=== PATIENT | female | born 1965 | race Caucasian/White ===

== ENCOUNTER → 2016-08-26 | Outpatient (CLI) | payer BC ==
[~2016-08-26] MED LIST: CHOL100010 PO; RANITAB33 PO
[2016-08-26 11:19] LABS: BASO % 0.1 %; BASO ABS # 0.01 K/uL (0-0.2); COMPLETE YES; EOS % 0.4 %; IG% 0.3 %; LYMPH % 15.3 %; MEAN CELL VOLUME 91.1 fL (80-100); MEAN CORPUSCULAR HEMOGLOBIN 32.1 pg (25-34); MEAN CORPUSCULAR HGB CONC 35.3 g/dl (32-36); MEAN PLATELET VOLUME 9.3 fL (7.4-10.4); MONO % 6.9 %; PLATELET COUNT 212 K/uL (130-400); RED BLOOD COUNT 4.17 M/uL (4.2-5.4); WHITE BLOOD COUNT 7.82 K/uL (4.8-10.8)
[2016-08-26 11:36] LABS: PROTHROMBIN TIME (PATIENT) 10.9 SECONDS (9.0-12.0)
[2016-08-26 14:48] LABS: URINE APPEARANCE CLEAR (CLEAR); URINE BILIRUBIN NEG (NEG); URINE COLOR YELLOW; URINE EPITHELIAL CELL AUTO >30 /lpf (0-5); URINE NITRITE NEG (NEG); URINE PH 5.5 (4.5-7.5); UROBILINOGEN NEG (NEG)
[2016-08-26 14:57] LABS: MANUAL MICROSCOPIC REQUIRED? NO; REVIEW REQ? NO
[2016-08-29 13:25] LABS: CHLAMYDIA TRACH RNA*** NOT DETECTED (NOT DETECTED); GC (NEIS GONORRHOEAE)RNA** NOT DETECTED (NOT DETECTED)
== END | disposition home or self-care (01) ==
LOC: C.LAB1850 10:43
PROVIDERS: ATTEND Obstetrics & Gynecology
DX: R10.2 Pelvic and perineal pain (principal); N92.6 Irregular menstruation, unspecified

== ENCOUNTER → 2017-02-18 | Outpatient (CLI) | payer BC ==
--- NOTE | 2017-02-19 14:34 | MAMMOGRAPHY REPORT ---
BILATERAL DIGITAL SCREENING MAMMOGRAM TOMOSYNTHESIS WITH CAD: 02/18/2017 CLINICAL HISTORY: Routine screening. TECHNIQUE: Breast tomosynthesis in addition to standard 2D mammography was performed. Current study was also evaluated with a Computer Aided Detection (CAD) system. COMPARISON: Comparison is made to exams dated: 12/14/2013 mammogram, 12/27/2014 mammogram, 12/08/2012 ma mmogram, 11/20/2011 mammogram, 11/20/2010 mammogram, and 11/13/2010 mammogram - [facility] nter. BREAST COMPOSITION: The tissue of both breasts is heterogeneously dense, which may obscure small mas ses. FINDINGS: There is an area of questionable architectural distortion within the left medial breast se en on the cc tomosynthesis images only (slice 26/51), not clearly evident on the MLO view. Recommend spot compression tomosynthesis views and possible breast ultrasound for further evaluation. The remainder of both breasts demonstrate no suspicious masses, calcifications, or areas of mobility architect ural distortion. A linear scar marker denotes a scar on the left upper outer breast; minimal archite ctural distortion seen within the left lateral breast on the cc view is in the region of the scar mar ker and likely represents postsurgical changes. Bilateral benign-appearing calcifications are not si gnificantly changed. IMPRESSION: ACR BI-RADS CATEGORY 0: INCOMPLETE EVALUATION: NEED ADDITIONAL IMAGING EVALUATION Possible left breast architectural distortion, for which additional imaging evaluation is recommended . The patient will be called to schedule an appointment. Approximately 10% of breast cancers are not detected with mammography. A negative mammographic report should not delay biopsy if a clinically suggestive mass is present. Alexandra Avitia M.D. ah/:02/18/2017 16:58:44 Reimbursement Counselor: Az BROWN(R)(M), [facility] letter sent: Addl Imaging 0 BI-RADS Code: ACR BI-RADS Category 0: Incomplete Evaluation: Need Additional Imaging Evaluation
== END | disposition home or self-care (01) ==
LOC: C.MAMM 16:28
PROVIDERS: ATTEND Nurse Practitioner Family
DX: Z12.31 Encounter for screening mammogram for malignant neoplasm of breast (principal); R92.8 Other abnormal and inconclusive findings on diagnostic imaging of breast

== ENCOUNTER → 2017-03-03 | Outpatient (CLI) | payer BC ==
--- NOTE | 2017-03-03 13:54 | MAMMOGRAPHY REPORT ---
UNILATERAL LEFT DIGITAL DIAGNOSTIC MAMMOGRAM TOMOSYNTHESIS AND TARGETED LEFT ULTRASOUND: 03/03/2017 CLINICAL HISTORY: 51 year-old woman called back from screening mammography for possible architectural distortion in the medial left breast. History of prior left breast surgery in the upper outer quadr ant. TECHNIQUE: Spot compression left CC and MLO tomosynthesis images were obtained. COMPARISON: Comparison is made to exams dated: 02/18/2017 mammogram, 12/27/2014 mammogram, 02/13/2016 ma mmogram, 12/14/2013 mammogram, 12/08/2012 mammogram, and 11/20/2011 mammogram - [facility] nter. BREAST COMPOSITION: The tissue of the left breast is heterogeneously dense, which may obscure small masses. FINDINGS: There is effacement of the questionable architectural distortion in the medial left breast on both the spot compression CC and MLO tomosynthesis images. There is persistence of a lobulated 11 x 8 mm circumscribed mass in the medial left breast on the spot compression CC view (tomosynthesis s lice 18), for which further evaluation with ultrasound was performed. There are a few benign-appeari ng round and punctate microcalcifications scattered and loose groupings. Targeted ultrasound was performed throughout the medial left breast. Numerous anechoic cysts are katie ntified. The largest cyst in the 8:00 left breast, 2 cm from the nipple, measures 9.2 x 7.1 x 7.5 mm , and is thought to correlate with the lobulated mammographic mass seen on the spot compression CC vi ew. No suspicious solid mass is identified. IMPRESSION: ACR-BI-RADS CATEGORY 3: PROBABLY BENIGN, TARGETED ULTRASOUND ACR-BI-RADS CATEGORY 3: PRO BABLY BENIGN 1. There is effacement of the questionable architectural distortion in the medial left breast, which most likely represented overlapping fibrolinear markings. No suspicious sonographic correlate was s een. However, a short interval follow-up diagnostic left mammogram including tomosynthesis images an d possible repeat ultrasound is recommended to ensure stability in 6 months. 2. There is a lobulated and circumscribed 11 x 8 mm mass in the medial left breast near the area of questionable distortion which persists on the spot compression CC view and corresponds to a benign an echoic simple cyst on ultrasound, seen and 8:00 axis. Several other cysts are scattered throughout t he visualized medial left breast, compatible with fibrocystic changes. These results and recommendations were discussed with the patient at the time of the exam. She mitchell dawn scheduled a follow-up appointment prior to leaving our department. Approximately 10% of breast cancers are not detected with mammography. A negative mammographic report should not delay biopsy if a clinically suggestive mass is present. Seda Marie M.D. ay/:03/03/2017 12:24:44 Proof Coin Collector: Mayra COHEN)(Florentino), [facility] letter sent: Follow Up Recommended 3 BI-RADS Code: ACR-BI-RADS Category 3: Probably Benign Ultrasound BI-RADS: ACR-BI-RADS Category 3: Pr obably Benign
== END ==
LOC: C.MAMM 09:21
PROVIDERS: ATTEND Nurse Practitioner Family
DX: R92.2 Inconclusive mammogram (principal); N63 Unspecified lump in breast

== ENCOUNTER → 2017-09-03 | Outpatient (CLI) | payer OTHER ==
--- NOTE | 2017-09-03 14:38 | MAMMOGRAPHY REPORT ---
UNILATERAL LEFT DIGITAL DIAGNOSTIC MAMMOGRAM TOMOSYNTHESIS WITH CAD: 09/03/2017 CLINICAL HISTORY: Short interval follow-up of the left breast for questionable architectural distorti on which effaced on the additional images. TECHNIQUE: Breast tomosynthesis in addition to standard 2D mammography was performed. Current study was also evaluated with a Computer Aided Detection (CAD) system. Left CC and MLO 2-D and tomosynthes is images were obtained. COMPARISON: Comparison is made to exams dated: 03/03/2017 ultrasound, 03/03/2017 mammogram, 02/18/2017 mammogram, 02/13/2016 mammogram, 12/27/2014 mammogram, and 12/14/2013 mammogram - [facility] enter. BREAST COMPOSITION: The tissue of the left breast is heterogeneously dense, which may obscure small masses. FINDINGS: The previously described questionable architectural distortion within the left medial breas t on the cc view is not evident on the current exam. An asymmetry is seen in this region which appea rs similar to multiple prior exams including the 2012 exam. Given the long-term stability and absenc e of architectural distortion, the finding is benign and compatible with normal fibroglandular tissue . The remainder of the left breast is stable compared to prior exams, without suspicious masses, valorie cifications, or areas of architectural distortion noted. Scattered bilateral benign-appearing calcif ications are not significantly changed. A linear scar marker denotes a scar on the left upper outer breast. IMPRESSION: ACR BI-RADS CATEGORY 2: BENIGN There is no mammographic evidence of malignancy in the left breast. Return to annual mammogram screen ing schedule is recommended, due January 2018. The patient has been verbally notified of the results. Approximately 10% of breast cancers are not detected with mammography. A negative mammographic report should not delay biopsy if a clinically suggestive mass is present. Alexandra Avitia M.D. /:09/03/2017 09:23:05 Clinical Review Specialist: Milvia Sánchez, [facility] letter sent: Normal 1/2 BI-RADS Code: ACR BI-RADS Category 2: Benign
== END | disposition home or self-care (01) ==
LOC: C.MAMM 09:05
PROVIDERS: ATTEND Nurse Practitioner Family
DX: N64.89 Other specified disorders of breast (principal)

== ENCOUNTER → 2018-03-22 | Outpatient (CLI) | payer OTHER ==
[2018-03-22 10:22] LABS: BASO % 0.3 %; BASO ABS # 0.02 K/uL (0-0.2); EOS % 0.7 %; EOS ABS # 0.05 K/uL (0-0.5); HEMATOCRIT 39.2 % (37-47); HEMOGLOBIN 13.7 g/dL (12.0-16.0); IG# 0.01 K/uL (0.00-0.02); LYMPH % 24.1 %; LYMPH ABS # 1.65 K/uL (1.2-3.4); MEAN CELL VOLUME 91.4 fL (80-100); MEAN CORPUSCULAR HEMOGLOBIN 31.9 pg (25-34); MEAN PLATELET VOLUME 8.8 fL (7.4-10.4); MONO % 8.9 %; MONO ABS # 0.61 K/uL (0.11-0.59); NEUT % 65.9 %; NEUT ABS # 4.52 K/uL (1.4-6.5); PLATELET COUNT 229 K/uL (130-400); RED CELL DISTRIBUTION WIDTH CV 12.9 % (11.5-14.5); RED CELL DISTRIBUTION WIDTH SD 43.1 fL (36.4-46.3); WHITE BLOOD COUNT 6.86 K/uL (4.8-10.8)
[2018-03-22 10:23] LABS: MEAN CORPUSCULAR HGB CONC 34.9 g/dl (32-36)
--- NOTE | 2018-03-22 10:42 | DIAGNOSTIC IMAGING REPORT ---
R ANKLE MIN 3 VIEWS ROUTINE CLINICAL HISTORY: PROSTERIOR ANKLE SKIN INJURY trauma. Pain. COMPARISON: None. DISCUSSION: The bones and joint spaces appear intact. There is no evidence of fracture, dislocation or bony disease. There is no evidence for soft tissue swelling. IMPRESSION: Negative study. The above report was generated using voice recognition software. It may contain grammatical, syntax or spelling errors. Electronically signed by: Reno Carrasco M.D. 03/22/2018 10:41 AM Dictated Date/Time: 03/22/2018 10:39 AM
--- NOTE | 2018-03-22 10:43 | DIAGNOSTIC IMAGING REPORT ---
L ANKLE MIN 3 VIEWS ROUTINE HISTORY: 52 years-old Female PROSTERIOR ANKLE SKIN INJURY acute left ankle pain COMPARISON: Right ankle radiographs of same day TECHNIQUE: 3 views of the left ankle FINDINGS: Mild circumferential soft tissue swelling about the ankle. Small joint effusion. No acute fracture or dislocation. IMPRESSION: Soft tissue swelling without fracture. The above report was generated using voice recognition software. It may contain grammatical, syntax or spelling errors. Electronically signed by: Ryan Marley M.D. 03/22/2018 10:42 AM Dictated Date/Time: 03/22/2018 10:39 AM
== END | disposition home or self-care (01) ==
LOC: C.RAD 10:05
PROVIDERS: ATTEND Nurse Practitioner
DX: S90.511A Abrasion, right ankle, initial encounter (principal); X58.XXXA Exposure to other specified factors, initial encounter; R60.0 Localized edema; M25.572 Pain in left ankle and joints of left foot; M79.9 Soft tissue disorder, unspecified

== ENCOUNTER → 2018-04-07 | Outpatient (CLI) | payer OTHER ==
--- NOTE | 2018-04-08 15:40 | MAMMOGRAPHY REPORT ---
BILATERAL DIGITAL SCREENING MAMMOGRAM TOMOSYNTHESIS WITH CAD: 04/07/2018 CLINICAL HISTORY: Routine screening. Patient has no complaints. TECHNIQUE: The study was acquired using full field digital technology and interpreted from soft copy. Breast tomosynthesis in addition to standard 2D mammography was performed. Current study was also ev aluated with a Computer Aided Detection (CAD) system. COMPARISON: Comparison is made to exams dated: 09/03/2017 mammogram, 03/03/2017 mammogram, 02/18/2017 m ammogram, 02/13/2016 mammogram, 12/27/2014 mammogram, and 12/14/2013 mammogram - [facility] nter. BREAST COMPOSITION: The tissue of both breasts is heterogeneously dense, which may obscure small mass es. FINDINGS: There are diffuse bilateral benign-appearing punctate calcifications. Stable asymmetry in the medial left breast on the CC cview. No suspicious spiculated or irregular mass, architectural dis tortion or cluster of microcalcifications is seen. IMPRESSION: ACR BI-RADS CATEGORY 1: NEGATIVE There is no mammographic evidence of malignancy. A 1 year screening mammogram is recommended.( [id number]) The patient will receive written notification of the results. Some breast cancers are not detected with mammography. A negative mammographic report should not kimani y biopsy if a clinically suggestive mass is present. Seda Marie M.D. ay/:04/07/2018 16:38:33 Dial Brusher: Susan Dhaliwal RT(R)(M)(BD), [facility] letter sent: Normal 1/2 BI-RADS Code: ACR BI-RADS Category 1: Negative
== END | disposition home or self-care (01) ==
LOC: C.MAMM 16:19
PROVIDERS: ATTEND Family Medicine
DX: Z12.31 Encounter for screening mammogram for malignant neoplasm of breast (principal)